=== PATIENT | male | born 1970 | race Caucasian/White ===

== ENCOUNTER 2016-05-12 15:11 | Inpatient (IN) | payer OTHER ==
[~2016-05-12] VITALS: Ht 165.1 cm; Wt 52.6 kg
[~2016-05-12 15:11] MED LIST: MORPHINE SULFAT15 M2 PO; VALIUM5 M1 PO; ZANAFLEX4 MG PO
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
--- NOTE | 2016-05-12 15:26 | NUR ---
PT HAS NOT BEEN TAKING HIS BIPOLAR MEDS
[2016-05-12] MEDS ORDERED: SEROQUEL25 M1 PO (16:06)
[2016-05-12] MEDS ORDERED: SEROQUEL300 M1 PO (16:06)
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
--- NOTE | 2016-05-12 16:55 | NUR ---
PT MOVED INTO ROOM8, BLOOD DRAWN AND SENT TO LAB-SST,GUILHERME GOMEZ GRAY. URINE TRIO SENT TO LAB. EKG DONE. IV EST, PT MEDICATED WITH GLUCOGON AND NITRO PER EMAR. VSS.
[2016-05-12 17:05] LABS: ABSOLUTE BASOPHIL COUNT 0 /CUMM (0.0-0.2); ABSOLUTE EOSINOPHIL COUNT 0 /CUMM (0.0-0.7); ABSOLUTE GRANULOCYTE CT 12.5 /CUMM (1.4-6.5); ABSOLUTE LYMPH COUNT 1.7 /CUMM (1.2-3.4); ABSOLUTE MONOCYTE COUNT 0.2 /CUMM (0.10-0.60); BASOPHIL % 0.2 % (0.0-2.0); EOSINOPHIL % 0.2 % (0-5); GRANULOCYTE % 86.4 % (42.2-75.2); HEMATOCRIT 46.6 % (42-52); MEAN CORPUSCULAR HGB 28.9 PG (27.0-31.0); MEAN CORPUSCULAR HGB CONC 33.4 G/DL (33.0-37.0); MEAN CORPUSCULAR VOLUME 86.4 FL (80.0-94.0); MEAN PLATELET VOLUME 9.3 FL (7.4-10.4); PLATELET COUNT 261 /CUMM (130-400); RBC DISTRIBUTION WIDTH 13.4 % (11.5-14.5); RED BLOOD CELL CT 5.39 /CUMM (4.70-6.10); WHITE BLOOD CELL COUNT 14.5 /CUMM (4.8-10.8)
--- NOTE | 2016-05-12 18:03 | NUR ---
MIGUELINA COUCH TO BEDSIDE FOR PT EVAL.
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
--- NOTE | 2016-05-12 18:31 | NUR ---
CRISIS TO BEDSIDE FOR PT EVAL.
--- NOTE | 2016-05-12 19:35 | NUR ---
Crisis consult completed - patient evaluation reviewed with on-call psychiatrist Dr. Tiffanie Riggins MD. Pt. to be admitted inpatient to [facility].
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
[2016-05-12 21:35] VITALS: BP 120/59
--- NOTE | 2016-05-12 22:16 | NUR ---
REPORT GIVEN TO CPS, TRANSPORT CALLED.
[2016-05-12 23:28] VITALS: BP 138/91
--- NOTE | 2016-05-12 23:55 | NUR ---
45 YEAR OLD MALE PATIENT ADMITTED TO [facility] WITH BIPOLAR DEPRESSION, SUICIDAL IDEATION, AND HEROINE DEPENDENCE; HE HAS BEEN USING IV AND NASAL HEROINE, PER PATIENT UP TO 50 BAGS DAILY; HE VERBALIZES SUIDICAL IDEATION; HE DENIED A PLAN DURING MY ASSESSMENT, BUT REPORTED A PLAN TO PUT AIR BUBBLES IN HIS VEINS OR USE A GUN DURING CRISIS ASSESSMENT; AFFECT IS SAD, DEPRESSED, TEARFUL; PATIENT HAS ALSO BEEN USING CANNABIS AND KLONOPIN OFF OF THE STREETS; UTOX POSITIVE ONLY FOR CANNABIS AND OPIATES; PATIENT HAS A HISTORY OF PAST SUICIDE ATTEMPTS; HE DENIES INTENT TO HARM HIMSELF WHILE IN THE HOSPITAL; ADMISSION VITAL SIGNS WNL; PATIENT REPORTS LAST BOWEL MOVEMENT ONE WEEK AGO; PER DR. SANDOVAL, COLACE AND MILK OF MAGNESIA ORDERED, ALONG WITH A ONE TIME DOSE OF METHADONE TONIGHT; SKIN INTACT; DR. BROOKS NOTIFIED FOR H&P.
--- NOTE | 2016-05-13 06:31 | NUR ---
PATIENT SLEPT ALL NIGHT.
[2016-05-13 08:16] VITALS: BP 136/71
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
[2016-05-13 13:32] VITALS: BP 123/73
--- NOTE | 2016-05-13 14:36 | NUR ---
PT WAS NOT VISIBLE MUCH IN THE [facility] TODAY. PT STAYED IN HIS BEDROOM FOR MOST OF THE DAY. HE SHARED TO THIS MHW THAT HE WAS NOT FEELING WELL. HE HAD MINIMAL INTERACTIONS WITH HIS PEERS, BUT HAS BEEN COOPERATIVE WITH STAFF WHEN IT COMES TO GETTING VITALS, AND GETTING UP FOR MEALS. WHEN ASKED IF PT HAS THOUGHTS TO HARM HIMSELF, PT STATED YES, HE WOULD DO IT HERE BUT HAS NO PLANS. THIS MHW DID REPORT IT TO THE NURSE IN CHARGE.
--- NOTE | 2016-05-13 14:54 | NUR ---
CLARIFICATION OF PREVIOUS NOTE: PATIENT REPORTS SUICIDE IDEATION WITHOUT A PLAN. PATIENT REPORTS HE WILL NOTIFY STAFF IF SUICIDAL THOUGHTS INCREASE OR HE FEELS UNSAFE.
--- NOTE | 2016-05-13 15:33 | Cons- Gastroenterology ---
LEXY OROSCO 05/13/16 1509: General Information and HPI Consulting Request Date of Consult: 05/13/16 Requested By: KIKA PRINCE MD Reason for Consult: Dysphagia Source of Information: patient Exam Limitations: no limitations History of Present Illness: He is 45-year-old male with past medical history of bipolar disorder, anxiety, Polysubstance abuse and chronic smoker (smokes 2 packs per day for last 35 years ) has been admitted in inpatient psych unit for high risk of harm to self due to stated suicidal ideation with a plan. We were called for consult because patient has been complaining of swallowing difficulty since admission. According to patient he has swallowing difficulty with both solids and liquids ( less severe) for last 3-5 years. He has dysphasia each time he eats or drinks something. He reports that he had been worked up by GI in [place] in past by doing EGD and they found esophageal scarring. He also had a colonoscopy but it was normal. He relates that scarring due to working in an environment with a chemical, ferrous sulfide. He denies any esophageal dilatation procedure. He also reported that he had a shoulder x-ray 3 years ago where they incidentally found an outpouching of upper esophagus. He admits choking on both solids and liquids and tries to swallow hard to get food down. He also reports getting food particles on his pillow when he wakes up in morning, foul-smelling breath, nausea and vomiting. He has chronic constipation and intermittent mild generalized abdominal pain. He admits having intermittent black tarry stools and history of hemorrhoids with BRBPR in past. Also reports unintentional weight loss about 9 pounds for last 6 months. He denies any family history of GI abnormalities or cancers. He also denies any chemical ingestion for suicide attempt in past. He does not complain of any chest pain. Allergies/Medications Allergies: Coded Allergies: haloperidol (From HALDOL) (STROKE LIKE SYMPTOMS, DROOLED 05/12/16) Home Med List: Quetiapine Fumarate (Seroquel) 300 MG TABLET 1 TAB PO QPM MENTAL HEALTH ( Reported) Quetiapine Fumarate (Seroquel) 25 MG TABLET 75 MG PO TID MENTAL HEALTH ( Reported) Current Medications: Current Medications Sig/Sofi Start time Last Medication Dose Route Stop Time Status Admin Acetaminophen 325 MG Q4P PRN 05/12 2345 AC 05/13 PO 1210 Clonidine 0.1 MG FOUR TIMES A DAY PRN 05/12 2345 AC PO Docusate Sodium 100 MG TID 05/12 2345 AC 05/13 PO 0908 Glucagon 0 .STK-MED ONE 05/12 1626 DC .ROUTE Glucagon 1 MG ONCE ONE 05/12 1615 DC 05/12 IV PUSH 05/12 1616 1654 Lorazepam 1 MG ONCE ONE 05/12 1945 DC 05/12 IV 05/12 1946 1942 Lorazepam 0 .STK-MED ONE 05/12 1938 DC .ROUTE Lorazepam 1 MG ONE ONE 05/12 1845 CAN PO 05/12 1846 Magnesium Hydroxide 30 ML AT BEDTIME NEED.. 05/12 2345 AC 05/13 PO 0003 Methadone HCl 10 MG BID 05/13 1000 AC 05/13 PO 0908 Methadone HCl 10 MG ONCE ONE 05/12 2330 DC 05/13 PO 05/12 2331 0002 Nicotine 21 MG DAILY 05/12 2345 05/13 TOP 0908 Nicotine 2 MG Q1H PRN 05/12 2345 05/13 PO 0909 Nitroglycerin 0 .STK-MED ONE 05/12 1626 DC SL Nitroglycerin 0.4 MG ONCE ONE 05/12 1615 DC 05/12 SL 05/12 1616 1654 Quetiapine Fumarate 25 MG Q2 HRS NEEDED PRN 05/12 234 AC PO Quetiapine Fumarate 100 MG AT BEDTIME NEED.. 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 Home ETOH Use: denies use Illicit Drug Use: heroin, marijuana Employment History Employment: Unemployed Profession/Employer: Worked since he was 15 Exam & Diagnostic Data Vital Signs and I&O Vital Signs Date Time Temp Pulse Resp B/P Pulse O2 O2 Flow FiO2 Ox Delivery Rate 05/13 1332 89 123/73 05/13 0816 97.2 92 136/71 01/23 2328 97.4 91 16 138/91 05/12 2134 99.0 90 18 120/59 05/12 2125 99.0 90 18 120/59 95 Room Air 05/12 1935 97.7 74 18 132/60 96 Room Air 05/12 1650 80 18 132/63 95 Room Air Intake & Output 05/13 0400 05/12 040 Intake Total 60 Output Total Balance 60 Intake, Oral 60 Patient 116 lb 120 lb Weight Physical Exam General Appearance: no apparent distress, alert, awake, anxious, thin, malnourished Head: atraumatic, normal appearance Eyes: Bilateral: normal appearance, PERRL, EOMI. Ears, Nose, Throat: dry mucous membranes Neck: normal inspection, supple Respiratory: normal breath sounds, chest non-tender, no respiratory distress, lungs clear Cardiovascular: regular rate/rhythm Gastrointestinal: normal bowel sounds, soft, non-tender, no organomegaly Extremities: normal inspection, no edema, fine tremors of hands Skin: intact, tatoos on lef hand and arm Results Pertinent Lab Results: Laboratory Tests 05/120 Chemistry Sodium (137 - 145 mmol/L) 137 Potassium (3.5 - 5.1 mmol/L) 3.9 Chloride (98 - 107 mmol/L) 100 Carbon Dioxide (22 - 30 mmol/L) 25 Anion Gap (5 - 16) 12 BUN (9 - 20 mg/dL) 20 Creatinine (0.7 - 1.2 mg/dL) 0.6 L Estimated GFR (>60 ml/min) > 60 BUN/Creatinine Ratio (7 - 25 %) 33.3 H Glucose (65 - 99 mg/dL) 149 H Calcium (8.4 - 10.2 mg/dL) 9.5 Total Bilirubin (0.2 - 1.3 mg/dL) 0.6 AST (17 - 59 U/L) 16 L ALT (21 - 72 U/L) 24 Alkaline Phosphatase (< 127 U/L) 95 Total Protein (6.3 - 8.2 g/dL) 7.0 Albumin (3.5 - 5.0 g/dL) 3.9 Globulin (1.9 - 4.2 gm/dL) 3.1 Albumin/Globulin Ratio (1.1 - 2.2 %) 1.3 TSH (0.270 - 4.200 uIU/mL) Cancelled 0.511 Free T4 (0.64 - 1.79 ng/dL) Cancelled 1.35 Thyroxine (T4) (4.5 - 10.9 ug/dL) Cancelled 6.4 Hematology CBC w Diff NO MAN DIFF REQ WBC (4.8 - 10.8 /CUMM) 14.5 H RBC (4.70 - 6.10 /CUMM) 5.39 Hgb (14.0 - 18.0 G/DL) 15.6 Hct (42 - 52 %) 46.6 MCV (80.0 - 94.0 FL) 86.4 MCH (27.0 - 31.0 PG) 28.9 RDW (11.5 - 14.5 %) 13.4 Plt Count (130 - 400 /CUMM) 261 MPV (7.4 - 10.4 FL) 9.3 Gran % (42.2 - 75.2 %) 86.4 H Lymphocytes % (20.5 - 51.1 %) 11.6 L Monocytes % (1.7 - 9.3 %) 1.6 L Eosinophils % (0 - 5 %) 0.2 Basophils % (0.0 - 2.0 %) 0.2 Absolute Granulocytes (1.4 - 6.5 /CUMM) 12.5 H Absolute Lymphocytes (1.2 - 3.4 /CUMM) 1.7 Absolute Monocytes (0.10 - 0.60 /CUMM) 0.2 Absolute Eosinophils (0.0 - 0.7 /CUMM) 0 Absolute Basophils (0.0 - 0.2 /CUMM) 0 PUBS MCHC (33.0 - 37.0 G/DL) 33.4 Toxicology Serum Alcohol (<10 MG/DL) < 10.0 05/12 1635 Toxicology Urine Opiates Screen (>2000 NG/ML) > 4000.00 H Methadone Screen (>300 NG/ML) < 40 Barbiturate Screen (>200 NG/ML) < 60 Ur Phencyclidine Scrn (>25 NG/ML) < 6.00 Amphetamines Screen (>1000 NG/ML) 179 U Benzodiazepines Scrn (>200 NG/ML) < 85 Urine Cocaine Screen (>300 NG/ML) < 50 Urine Cannabis Screen (>50 NG/ML) > 80.00 H Assessment/Plan Assessment/Recommendations: He is 45-year-old man with past medical history of bipolar disorder, anxiety, polysubstance abuse and chronic smoker has been admitted to [facility] inpatient psych unit for mental health issues and complaining of chronic dysphagia to both solids and less severe with liquids. For this patient differentials for dysphagia could be Zenker's diverticulum vs esophageal stricture/peptic stricture vs esophageal cancer given his extensive smoking history vs achalasia vs motility disorders vs less likely esophageal spasm. He is hemodynamically stable with normal physical exam. Electrolytes are normal. We can do modified barium swallow to rule out any obstructive or motility disorders. CT chest/neck could be another option. Depending on the test results we will proceed further. Patient might need upper GI endoscopy if test results are positive for any stricture or mass. Problem List: 1. Dysphagia Consult Acknowledgment - Thank you for your consult request. LUANNE MCGEE MD 05/13/161939: Attending MD Review Statement Attending Statement Attending MD Statement: examined this patient, discuss w/resident/PA/RETARDER OPERATOR, agreed w/resident/PA/RETARDER OPERATOR, reviewed EMR data (avail), amended to note Attending Assessment/Plan: The patient was interviewed and examined. The available data was reviewed. Agree with resident's history, physical examination, and assessment. Progressive oropharyngeal dysphagia, solids more than liquid, with weight loss. Rule out cricopharyngeal achalasia with possible Zenker's diverticulum. There may also be a component of esophageal dysphagia, with the patient's history of "scarring." Recommendations * Would obtain modified barium swallow, and also esophagram with liquid and solid (barium soaked bread, barium tablet) phases. * We will defer on endoscopy for now. Pending the above, it may become necessary. * Would supplement meals with Ensure or other polymeric supplements, 3 cans per day. Assessment/Plan Consult Acknowledgment - Thank you for your consult request.
[2016-05-13 16:21] VITALS: BP 123/86
--- NOTE | 2016-05-13 18:08 | History & Physical ---
General Information and HPI MD Statement: I have seen and personally examined PRATIK BAH and documented this H&P. The patient is a 45 year old M who presented with a patient stated chief complaint of "SI and IV drug use". Source of Information: patient Exam Limitations: no limitations History of Present Illness: 45 year old white male history of fractured back in the spring of 2015 after started to use IV heroin secondary to the pain also increased depression thoughts of wanting to hurts self.Using 50 bags of heroin a day also complaining of dysphagia. 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 Home ETOH Use: denies use Illicit Drug Use: heroin, marijuana Employment History Employment Unemployed Profession/Employer Worked since he was 15 Review of Systems Review of Systems Constitutional: Reports: see HPI. Exam & Diagnostic Data Last 24 Hrs of Vital Signs/I&O Vital Signs Date Time Temp Pulse Resp B/P Pulse O2 O2 Flow FiO2 Ox Delivery Rate 05/13 1729 97.2 90 123/86 05/13 1621 90 123/86 05/13 1332 89 123/73 05/13 0816 97.2 92 136/71 05/12 2328 97.4 91 16 138/91 05/12 2135 99.0 90 18 120/59 05/12 2126 99.0 90 18 120/59 95 Room Air 05/12 1935 97.7 74 18 132/60 96 Room Air Intake & Output 05/13 1600 05/13 0800 05/13 0000 Intake Total 60 Output Total Balance 60 Intake, Oral 60 Patient 116 lb Weight Physical Exam General Appearance Alert, Oriented X3, Cooperative Skin pale and dry HEENT PERRLA, EOMI Neck Supple, No JVD, No thryomegaly, +2 Carotid Pulse wo Bruit, No LAD Lymphatic Axillary nl, Cervical nl Cardiovascular Regular Rate Lungs decreased breath sounds. Abdomen Normal Bowel Sounds, Soft, No Tenderness Neurological Exam Findings: Cranial Nerves 3-12 NL Cranial Nerves II through XII: intact Extremities No Cyanosis, No Edema Vascular Normal Pulses Last 24 Hrs of Labs/David: Laboratory Tests 05/12/162122: TSH Cancelled, Free T4 Cancelled, Thyroxine (T4) Cancelled 05/12/16 1650: Anion Gap 12, Estimated GFR > 60, BUN/Creatinine Ratio 33.3 H, Glucose 149 H, Calcium 9.5, Total Bilirubin 0.6, AST 16 L, ALT 24, Alkaline Phosphatase 95, Total Protein 7.0, Albumin 3.9, Globulin 3.1, Albumin/Globulin Ratio 1.3, TSH 0.511, Free T4 1.35, Thyroxine (T4) 6.4, CBC w Diff NO MAN DIFF REQ, RBC 5.39, MCV 86.4, MCH 28.9, RDW 13.4, MPV 9.3, Gran % 86.4 H, Lymphocytes % 11.6 L, Monocytes % 1.6 L, Eosinophils % 0.2, Basophils % 0.2, Absolute Granulocytes 12.5 H, Absolute Lymphocytes 1.7, Absolute Monocytes 0.2, Absolute Eosinophils 0, Absolute Basophils 0, PUBS MCHC 33.4, Serum Alcohol < 10.0 05/12/16 1635: Urine Opiates Screen > 4000.00 H, Methadone Screen < 40, Barbiturate Screen < 60, Ur Phencyclidine Scrn < 6.00, Amphetamines Screen 179, U Benzodiazepines Scrn < 85, Urine Cocaine Screen < 50, Urine Cannabis Screen > 80.00 H Laboratory Tests 05/12/162122: TSH Cancelled, Free T4 Cancelled, Thyroxine (T4) Cancelled Diagnostic Data ITS Data Unobtainable at this time Assessment/Plan As Ranked By This Provider Problem List: 1. Dysphagia 2. Polysubstance abuse 3. Depression 4. Suicidal ideation Miscellaneous Miscellaneous Documentation Attending Case Discussed With: KIKA SANTIAGO MD Primary Care Physician: PATIENT HAS NO PRIMARY CARE DR Patient sees these Specialists psych and GI Level of Patient Care: [place] Consults Needed: Consulting Specialty: Psychiatry Consulting Physician: Dr. Santiago Reason for Consult: SI and IV drug use.
[2016-05-13 20:10] VITALS: BP 125/71
--- NOTE | 2016-05-14 04:47 | NUR ---
QUIET SITTING IN LOUNGE FOR SHORT TIME MED. WITH SEROQUEL.
[2016-05-14 08:10] VITALS: BP 119/73
[2016-05-14 11:58] VITALS: BP 116/68
[2016-05-14 12:21] VITALS: BP 116/68
--- NOTE | 2016-05-14 13:19 | SOCIAL WORKER TX PLAN PSYCH ---
Treatment Plan - Please Document: - Evidence that there is ongoing collaboration between - the patient and the interdisciplinary team, - including the patient's active participation and - responsibility for engaging in the treatment regimen, - and that the treatment plan is individualized and - relevant to the patient's conditions. - Treatment plan should reflect documentation indicating - that all active therapeutic efforts are included. 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 Patient Identified Trmt Goals: "I need to get my life together." Discharge Plan: [facility] Problem/Goals #1 Problem #1: suicidal ideation Goal (Short Term): Today I will attend 2 groups Today I will identify 2 stressors Today I will identify 2 positive supports Today I will work on recognizing 3 emotions I am feeling Goal (Drop Forge Operator): Be free of suicidal thoughts/attempts Develop 3 coping skills to deal with depression Identify 3 positive support systems to call in crisis Develop a crisis plan with 3 lucia people Identify 2 positive traits per week about myself Identify 2 things I have to look forward to Identify 2 positive people in my life and 1 thing I appreciate about them Interventions: Learn ways to manage depressive symptoms accordingly and identify positive supports to manage life stressors and mood fluctuations. Modalities: Encourage groups, education on depression, provide CBT treatment, family meeting. Problem/Goals #2 Problem #2: opiate dependence/abuse Goal (Short Term): 1) Refrain from opiate use 2) Identify 3 triggers for use 3) Identify 3 sober supports 4) Identify 3 coping skills Goal (Drop Forge Operator): I will have family meeting on unit during my hospitalization I will attend all AA groups on unit I will arrange aftercare with [facility] I will Identify 3 coping skills for cravings to use I will attend all AA meetings on the unit I will set up aftercare for dual diagnosis program to address both mental health and substance abuse concerns Interventions: Learn ways to manage cravings to use substances accordingly and identify coping skills to prevent relapse from occurring due to anxious/depressed feelings. Modalities: Encourage groups, education on addiction, provide CBT treatment, family meeting. DSM5/PS Stressors/Medical Prob Diagnosis' (DSM 5, Stressors, Medical): F31.81 Bipolar disorder I, depressed F11.20 Opioid use disorder, Severe F41.9 Unspecified Anxiety Disorder Rule out for F40.02 Agoraphobia Current GAF: 20 Treatment Team - Responsibilities of members of the treatment team include: - Medication Management- MD or BALLOON SELLER - Medication Administration and Monitoring- Nurse - Group Therapy- Occupational Therapist - 1:1 Therapy,Disch Planning,family involvement-Vp Software
--- NOTE | 2016-05-14 13:25 | NUR ---
PT IS COMPLIANT AND COOPERATIVE. PT IS OUT IN COMMUNITY INTERACTING AT TIMES WITH STAFF AND PEERS. PT IS ACTIVE IN GROUPS. PT MOOD IS STABLE WTIH A COSNTRICTED AFFECT. PT DENIES SI THOUGHTS. PT IS NOT SCORING ON CIWA OR COWS ASSESSMENT
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
--- NOTE | 2016-05-14 15:47 | CP SOUTH PROGRESS NOTE PSYCH ---
Psych (Inpt) Progress Note Progress Note Progress Note: I discussed this patient's progress to date, current mental status, treatment process in the context of the treatment plan, and discharge planning with staff/ team in the daily morning inpatient team meeting. I also met with the patient myself in individual session. A total of 25 minutes was spent with the patient with more than 50% spent in counseling and/or coordination of care. SUBJECTIVE: "I get severely impulsive. Its cost me quite a bit. Sometimes I stay up for days doing impulsive things, I clean the house, I arranged stuff. Then sometimes I will leave the house." OBJECTIVE: Current Medications Sig/Sofi Start time Last Medication Dose Route Stop Time Status Admin Acetaminophen 325 MG Q4P PRN 05/12 2345 DC 05/13 PO 1210 Baclofen 10 MG Q6-PRN PRN 05/13 1700 AC 05/14 PO 0751 Clonidine 0.1 MG Q8P PRN 05/13 1700 AC 05/14 PO 1121 Clonidine 0.1 MG 0800,1300,0 05/13 1645 AC 05/14 PO 1357 Clonidine 0.1 MG FOUR TIMES A DAY PRN 05/12 2345 DC PO Dicyclomine HCl 20 MG Q6-PRN PRN 05/13 1700 AC 05/14 PO 0751 Docusate Sodium 100 MG TID 05/12 2345 AC 05/14 PO 0749 Hydroxyzine HCl 50 MG Q6PRN PRN 05/13 1700 AC 05/14 PO 1122 Ibuprofen 600 MG Q6PRN PRN 05/13 1700 05/14 PO 0752 [place] Carbonate 600 MG 2000 05/14 2000 AC PO [place] Carbonate 300 MG 05/14 0830 AC 05/14 PO 0916 Magnesium Hydroxide 30 ML AT BEDTIME NEED.. 05/12 2345 05/13 PO 0003 Methadone HCl 5 MG 0800,1300,1700,0 05/15 0800 AC PO 05/16 0801 Methadone HCl 5 MG ONCE ONE 05/14 1245 DC 05/14 PO 05/14 1246 1357 Methadone HCl 10 MG ONCE ONE 05/13 1545 DC 05/13 PO 05/13 1546 1543 Methadone HCl 10 MG BID 05/13 1000 AC 05/14 PO 05/14 2300 0750 Multivitamins 1 TAB 0805/14 0800 AC 05/14 PO 0749 Nicotine 21 MG DAILY 05/12 2344 05/14 TOP 0749 Nicotine 2 MG Q1H PRN 05/12 2344 05/14 PO 1357 Quetiapine Fumarate 25 MG Q2 HRS NEEDED PRN 05/12 2344 05/14 PO 0432 Quetiapine Fumarate 100 MG AT BEDTIME NEED.. 05/12 2344 AC PO Laboratory Tests 05/14 05/14 0441 0441 Chemistry Hemoglobin A1c Pending Triglycerides (<150 mg/dL) 82 Cholesterol (< 200 MG/DL) 189 LDL Cholesterol, Calc (65 - 129 mg/dL) 133 H HDL Cholesterol (40 - 60 mg/dL) 40 Cholesterol/HDL Ratio (0.00 - 4.88 %) 5 H Vital Signs Date Time Temp Pulse Resp B/P Pulse O2 O2 Flow FiO2 Ox Delivery Rate 05/14 1357 78 123/57 05/14 1221 79 116/68 05/14 1158 79 116/68 05/14 1121 79 11668 05/14 0810 96.9 75 119/73 05/14 0749 89 125/71 05/13 2128 97.7 89 16 125/71 05/13 2009 97.7 89 12571 05/13 1729 97.2 90 123/86 05/13 1621 90 123/ ASSESSMENT: Today patient described a lifetime history of severe mood lability, often staying up for days at a time, keeping busy with various tasks. States that his mother took lithium. Patient endorses having bipolar disorder, extreme mood lability. We discussed the risks, benefits, and side effects of lithium including possible renal failure, thyroid problems, and lithium toxicity. Patient verbalized understanding, and stated that he felt it was important for him to be medicated for his severe mood swings. He's been tolerating opiate withdrawal protocol including methadone taper well. I met with him in individual session this morning, and then encountered him this afternoon. This afternoon he appeared alert and awake, participating in the community, ambulating with steady gait. Reports that his depression has been improving since his arrival here; Anxiety: 9/ (with 10 the worst.) Denies suicidal ideation, homicidal ideation, auditory hallucinations, visual hallucinations, paranoid ideation. Patient states and also believes that he will not kill himself. Speech is well articulated, goal-directed, average in rate, volume and tone. Alert and oriented 3. Cooperative. The patient understands the risks/benefits/side effects of the medication and is agreeable to continue taking them. PLAN: Arlee 300 mg in the morning and 600 mg at night. Arlee level on Thursday. Family meeting with his daughter scheduled for today. Continue with current management as patient is improving. Continue to provide support and encouragement.
[2016-05-14 15:48] VITALS: BP 107/67
[2016-05-14 20:24] VITALS: BP 128/61
--- NOTE | 2016-05-14 21:50 | NUR ---
PT IS VISIBLE ON UNIT, SOCIALIZING WITH PEERS AND STAFF. DAUGHTER VISITED BRIEFLY THROUGHOUT THE EVENING. NO COMPLAINTS OR SI REPORTED. ATTENDED WRAP UP MEETING. NO COMPLAINTS OR SI REPORTED TO THIS MHW. PT HAS A STABLE MOOD AND FULL RANGE AFFECT.
[2016-05-15 07:41] VITALS: BP 127/68
[2016-05-15 12:34] VITALS: BP 131/51
--- NOTE | 2016-05-15 13:49 | SOCIAL WORKER PROG NOTE PSYCH ---
Social Work Progress Note Progress Note Pt continues to be concerned about how to manage his pain without medications, although he was wondering if he could look into menthadone, pt is not convinced either way he states "I know myself, I can only manage this pain for so long then I relapse, I never used heroin in my life until I got hurt". Pt also contmeplating not going back to live with gf, "its a co-dependent relationship", he mentions I want to have a plan, its gotta be solid, "I dont know what to do".
--- NOTE | 2016-05-15 14:31 | NUR ---
PT HAS BEEN ATTENDING GROUPS ALL DAY AND PARTICIPATING WELL. HE IDENTIFIES HIS STRESSORS AND IS MOTIVATED TO BE CLEAN AND SOBER. HE DENIED ANY SUICIDAL THOUGHTS TODAY AND IS COMPLIANT WITH HIS MED REGIME
[2016-05-15 15:55] VITALS: BP 102/57
--- NOTE | 2016-05-15 16:56 | CP SOUTH PROGRESS NOTE PSYCH ---
Psych (Inpt) Progress Note Progress Note Progress Note: I discussed this patient's progress to date, current mental status, treatment process in the context of the treatment plan, and discharge planning with staff/ team in the daily morning inpatient team meeting. I also met with the patient myself in individual session. SUBJECTIVE: "I'm always anxious, my whole life. I can't calm down." OBJECTIVE: Current Medications Sig/Sofi Start time Last Medication Dose Route Stop Time Status Admin Acetaminophen 650 MG Q6P PRN 05/15 1115 AC 05/15 PO 1225 Baclofen 10 MG Q6-PRN PRN 05/13 1700 AC 05/14 PO 0751 Clonidine 0.1 MG Q8P PRN 05/13 1700 DC 05/14 PO 1121 Clonidine 0.1 MG 0800,1300,05/13 1645 05/15 PO 1418 Dicyclomine HCl 20 MG Q6-PRN PRN 05/13 1700 AC 05/14 PO 0751 Docusate Sodium 100 MG TID 05/12 2345 05/15 PO 1636 Hydroxyzine HCl 50 MG Q6PRN PRN 05/13 1700 AC 05/14 PO 1122 Ibuprofen 600 MG Q6PRN PRN 05/13 1700 DC 05/14 PO 0752 [place] Carbonate 600 MG 2000 05/14 2000 AC 05/14 PO 2028 [place] Carbonate 300 MG 05/14 0830 05/15 PO 0815 Magnesium Hydroxide 30 ML AT BEDTIME NEED.. 05/12 2345 AC 05/13 PO 0003 Methadone HCl 5 MG 0800,1300,1700,05/15 0800 05/15 PO 05/16 0801 1636 Methadone HCl 10 MG BID 05/13 1000 DC 05/14 PO 05/14 2300 2225 Multivitamins 1 TAB 0805/14 0800 05/15 PO 0815 Nicotine 21 MG DAILY 05/12 TOP 0815 Nicotine 2 MG Q1H PRN 05/12 234 05/15 PO 1419 Quetiapine Fumarate 200 MG AT BEDTIME 05/15 2200 UNVr PO Quetiapine Fumarate 100 MG .STK-MED ONE 05/14 2223 DC PO 05/14 2224 Quetiapine Fumarate 25 MG Q2 HRS NEEDED PRN 05/12 2345 AC 05/14 PO 1559 Quetiapine Fumarate 100 MG AT BEDTIME NEED.. 05/12 2345 DC 05/14 PO 2228 ital Signs Date Time Temp Pulse Resp B/P Pulse O2 O2 Flow FiO2 Ox Delivery Rate 05/15 1555 82 102/57 05/15 1418 72 131/51 05/15 1234 72 131/51 05/15 0815 68 127/68 05/15 0741 96.9 68 127/68 05/14 2225 61 128/61 05/14 2023 97.8 84 128/61 ASSESSMENT: Patient reports doing well, tolerating opiate withdrawal well. States medications are helpful. Denies any acute withdrawal symptoms at the time of this interview. States he had a difficult time sleeping last night. Complains of chronic back pain, somewhat relieved by a heating pad. Depression:0/10; Anxiety: "Constant" (with 10 the worst.) Denies suicidal ideation, homicidal ideation, auditory hallucinations, visual hallucinations, paranoid ideation. Patient states that today he is not having suicidal thoughts. Speech is well articulated, goal-directed, average in rate, volume and tone. Calm and cooperative. Logical. Alert and oriented 3. The patient understands the risks/benefits/side effects of the medication and is agreeable to continue taking them. PLAN: Increase bedtime Seroquel to 200 mg for continuing difficulty sleeping, and regulation of racing thoughts. Continue methadone and clonidine tapers. Heating pad as needed for back pain. Continue with other current management as patient is improving. Continue to provide support and encouragement.
[2016-05-15 19:53] VITALS: BP 115/68
--- NOTE | 2016-05-15 23:24 | NUR ---
EVENING NOTE- IRRITABLE AND OFTEN REQUIRES REDIRECTION. BECAME UPSET WHEN ASKED TO STEP AWAY FROM THE DOOR HIS DAUGHTER WAS BEING LET OUT. REPORTED THAT THIS FELT "PERSONAL" EVEN AFTER ASSURED IT WAS PROTOCOL. ATTENDED GROUP. INRERACTING [facility] PEERS/STAFF
--- NOTE | 2016-05-16 04:32 | NUR ---
SLEPT WELL WITH NO COMPLAINTS OFFERED.
[2016-05-16 07:28] VITALS: BP 117/63
--- NOTE | 2016-05-16 10:43 | SOCIAL WORKER PROG NOTE PSYCH ---
Social Work Progress Note Progress Note Pt reports he can call his back and can be referred to pain management, he also would like a referral to a methadone clinic closer to [place], as he doesnt think he can stay with his daughter because her apartment is so small. Pt is not completely sure what he should do. He doesnt think he should stay in [place] either, but feels like he will be a burden to his daughter. I made an IOP intake here at [facility] for 05/20 at 12:45p and I also got the information for a methadone clinic (per pts request) closer to [place] at the [facility] they accept patient Thu- 10-2p contact info is [phone]. They are located at [address] in [place]. He will need a few documents when he applies there including a piece of mail, an id and a social security card. Pt states he would like the day to think about it, as he prepares for discharge after the weekend.
[2016-05-16 12:31] VITALS: BP 122/78
--- NOTE | 2016-05-16 13:18 | SOCIAL WORKER PROG NOTE PSYCH ---
Social Work Progress Note Progress Note Patient may be returning home to [facility] instead of residing in local area. Patient is scheduled for orientation for IOP at [facility] ([facility] location in [place]) on 05/20/16 at 10:15am.
--- NOTE | 2016-05-16 14:17 | NUR ---
PT IS OUT IN COMMUNITY INTERACTING WITH STAFF AND PEERS. PT IS COMPLIANT AND COOPERATIVE. PT IS ATTENDING ALL GROUPS. PT IS EXPECTING A VISIT FROM GIRLFRIEND TODAY WHICH HE DOESN'T KNOW IF HE IS READY. PT MOOD IS STABLE WITH A FULL RANGE AFFECT. PT DENIES SI THOUGHTS
[2016-05-16 15:38] VITALS: BP 120/67
--- NOTE | 2016-05-16 16:11 | CP SOUTH PROGRESS NOTE PSYCH ---
Psych (Inpt) Progress Note Progress Note Progress Note: I discussed this patient's progress to date, current mental status, treatment process in the context of the treatment plan, and discharge planning with staff/ team in the daily morning inpatient team meeting. I also met with the patient myself in individual session. OBJECTIVE: Current Medications Sig/Sofi Start time Last Medication Dose Route Stop Time Status Admin Acetaminophen 650 MG Q6P PRN 05/15 1115 AC 05/15 PO 1225 Baclofen 10 MG Q6-PRN PRN 05/13 1700 AC 05/14 PO 0751 Clonidine 0.1 MG 0800,05/16 220 AC PO Clonidine 0.1 MG 0800,1300,05/13 1645 DC 05/16 PO 1206 Dicyclomine HCl 20 MG Q6-PRN PRN 05/13 170 05/14 PO 0751 Docusate Sodium 100 MG TID 05/12 2345 AC 05/15 PO 1636 Hydroxyzine HCl 50 MG .STK-MED ONE 05/15 2128 DC PO 05/15 2130 Hydroxyzine HCl 50 MG Q6PRN PRN 05/13 1700 AC 05/15 PO 2134 [place] Carbonate 600 MG 05/14 PO 1954 [place] Carbonate 300 MG 05/14 0830 05/16 PO 0724 Magnesium Hydroxide 30 ML AT BEDTIME NEED.. 05/12 234 AC 05/13 PO 0003 Methadone HCl 5 MG 05/18 0800 AC PO 05/18 0801 Methadone HCl 5 MG 0800,05/17 0800 AC PO 05/17 2201 Methadone HCl 5 MG 1300,05/16 1300 AC 05/16 PO 05/16 2201 1343 Methadone HCl 5 MG 0800,1300,1700,05/15 0800 DC 05/16 PO 05/16 0801 0724 Multivitamins 1 TAB 05/14 0800 AC 05/16 PO 0724 Nicotine 21 MG DAILY 05/12 TOP 0723 Nicotine 2 MG Q1H PRN 05/12 2344 05/16 PO 1206 Quetiapine Fumarate 300 MG AT BEDTIME 05/16 2200 AC PO Quetiapine Fumarate 200 MG AT BEDTIME 05/15 220 DC 05/15 PO 2132 Quetiapine Fumarate 25 MG Q2 HRS NEEDED PRN 05/12 2345 AC 05/14 PO 1559 Quetiapine Fumarate 100 MG AT BEDTIME NEED.. 05/12 2345 DC 05/14 PO 2228 Vital Signs Date Time Temp Pulse Resp B/P Pulse O2 O2 Flow FiO2 Ox Delivery Rate 05/16 1538 81 120/67 05/16 1231 85 122/78 05/16 1206 73 117/63 05/16 0728 96.5 73 117/63 05/16 0724 83 115/68 05/15 2131 83 115/68 05/15 1953 97.3 83 ASSESSMENT: Patient reports he is doing well, tolerating methadone and clonidine taper for opiate withdrawal well. Tolerating lithium for mood stability and Seroquel for clear thoughts and insomnia well. Depression:10/27; Anxiety:01/27 (with 10 the worst.) Patient states "my whole life, I'm always at 10." Denies suicidal ideation, homicidal ideation, auditory hallucinations, visual hallucinations, paranoid ideation. Patient states and also believes that he will not kill himself. States he did not sleep well last night, requesting increase in dose of Seroquel at bedtime. States his appetite is good. Speech is well articulated, goal-directed, average in rate, volume and tone. Calm and cooperative. The patient understands the risks/benefits/side effects of the medication and is agreeable to continue taking them. PLAN: [place] level on Thursday morning. Please titrate to therapeutic value. Continue methadone and clonidine taper to discontinuation. Anticipate discharge early next week. Continue with current management as patient is improving. Continue to provide support and encouragement.
[2016-05-16 19:57] VITALS: BP 134/72
--- NOTE | 2016-05-16 21:29 | NUR ---
PT IS STABLE WITH CONSTRICTED AFFECT. PT REPORTS SOME MILD ANXIETY AND CHRONIC PAIN. PT IS CURRENTLY IN THE LOUNGE INTERACTING WITH PEERS/STAFF. PT HAS BEEN VISIBLE WITHIN THE MILIEU ALL NIGHT. VS ARE STABLE AND DENIES ANY SI/HI TO THIS MHW.
[2016-05-17 06:55] LABS: LITHIUM 0.5 mmol/L (0.6-1.2)
[2016-05-17 08:19] VITALS: BP 116/74
[2016-05-17 12:26] VITALS: BP 113/65
--- NOTE | 2016-05-17 13:55 | NUR ---
PTS GOAL WAS TO "MAKE IT THRU THE DAY". HE ATTENED ONLY ONE GROUP. HE IS COMPLIANT WITH HIS MED REGIME AND HE DENIED ANY SUICIDAL THOUGHTS TODAY. HE INTERACTS WITH STAFF AND PEERS APPROPRIATELY
--- NOTE | 2016-05-17 14:42 | CP SOUTH PROGRESS NOTE PSYCH ---
Psych (Inpt) Progress Note Progress Note Include the following elements, when applicable: Involvement in the active treatment of the patient with behavioral observations of the patient and the patient's response to the treatment. Review of the ongoing treatment process in the context of the treatment plan. Indication of how multi-disciplinary staff members are carrying out the treatment plan. Plans for future interventions and recommendations for revision of the treatment plan. Liaison with other physicians/providers. Progress Note: Stated that he has continued to have pain, anxiety, cant sleep. Stated that Tylenol is like a tic tac compared to all the heroin he was using prior to admission. Not realistic plans when discharged poorly motivated to attend longer term drug tx, states that he needs to work and will probably smoke weed instead, at least it helps with the anxiety. Attempted to discuss benefits of longer term drug tx. Stated that he is always anxious, feels that his body hyper metabolizes everything. MSE: middle aged man, poor dentition, poor grooming. Mild psychomotor activation. Anxious at times. Good eye contact. Mood anxious, affect full to constricted. Jittery. Thought process coherent and goal directed. No overt thought content abnormalities evident. States that he wanted to b/c of the pain, not b/c he actually wants to , wanted relief. No AH/VH. Insight impaired, judgment adequate. Risk associated w/ significant pain, drug use hx, depressive hx. Manage w/ education, med titration, mileu therapy, groups. A: 45 y/o man w/ hx depressive sx, mood instability, drug use hx, presents anxious, jittery, c/o pain and insomnia. Plan: Li level 0.5, will increase to lithium 600mg twice daily; labs on 05/20. Will consider increasing lithium again tmr. encouraged him to take his prn of seroquel and hydroxyzine. Discussed importance of abstinence and pain management program rather than smoking MJ.
[2016-05-17 16:15] VITALS: BP 125/66
[2016-05-17 20:22] VITALS: BP 138/87
--- NOTE | 2016-05-17 22:54 | NUR ---
PT IS CALM, COOPERATIVE WITH STAFF AND PEERS, AND COMPLIANT WITH UNIT RULES. PT RFECIEVED VISIT FROM DAUGHTER DURING SHIFT. PT HAS BEEN INTERACTING WELL WITH OTHERS AND REMAINS IN MILIEU. MOOD IS STABLE, AFFECT IS FULL RANGE, COMMUNICATION IS NORMAL, AND APPETITE IS NORMAL. PT DENIES SI AT THIS TIME.
--- NOTE | 2016-05-18 05:41 | NUR ---
PATIENT SLEPT FROM 0130 AND IS CURRENTLY STILL SLEEPING.
[2016-05-18 07:56] VITALS: BP 125/73
--- NOTE | 2016-05-18 11:44 | CP SOUTH PROGRESS NOTE PSYCH ---
Psych (Inpt) Progress Note Progress Note Include the following elements, when applicable: Involvement in the active treatment of the patient with behavioral observations of the patient and the patient's response to the treatment. Review of the ongoing treatment process in the context of the treatment plan. Indication of how multi-disciplinary staff members are carrying out the treatment plan. Plans for future interventions and recommendations for revision of the treatment plan. Liaison with other physicians/providers. Progress Note: Stated that he is anxious, that he has a temper problem and is very quick to anger and has been since adolescence; discussed therapy and behavioral management for this. [place] his son, daughter, grandchildren, in the beginning of June. Feels that this will be beneficial to get him away from drug triggers, improve his pain w/ the bad weather. Stated that he hopes that the routine will manage his sx. We discussed having plan (ie call family, walk away etc) when faced w/ triggers for drug use and when having suicidal/severely depressive thoughts, rather than Ill try to avoid it as behavioral management. No change with increased lithium dose. MSE: middle aged man, poor dentition, poorly groomed. Psychomotor agitation remains, anxious. Eye contact fair. Mood euthymic to anxious, affect full overall. Thought process coherent and goal directed. No overt thought content abnormalities evident. Denies thoughts of wanting to . No AH/VH. Insight impaired, judgment adequate. Risk associated w/ significant pain, drug use hx, depressive hx. Manage w/ education, med titration, mileu therapy, groups. A: 45 y/o man w/ hx depressive sx, mood instability, drug use hx, presents anxious, jittery, c/o pain; but future oriented and looking forward to next several months. Plan: Li level 0.5, increased lithium again to 600mg in the morning and 750mg at night time. Said he urinates more frequently so continue to monitor lithium level. Encouraged him to take PRN of seroquel and hydroxyzine. Discussed abstinence and importance of outpatient follow up rather than just relying on himself for sobriety. Changed to prn colace.
[2016-05-18 12:20] VITALS: BP 124/71
--- NOTE | 2016-05-18 14:37 | NUR ---
Pt is present in the community A&O X 3, compliant with medication and group therapies/ activities. Pt report poor night sleep due largely to multiple bathroom trips siting the lithium carbonates as most probable cause. Pt's mood is stable with constricted affects c/o of chronic back. vital sign is stable and within the acceptable, denies thougth of self-harm and to someone else.
[2016-05-18 15:55] VITALS: BP 155/70
[2016-05-18 20:12] VITALS: BP 159/64
--- NOTE | 2016-05-18 21:37 | NUR ---
PT IS VISIBLE ON UNIT, SOCIAL WITH PEERS. HAD VISITORS THROUGHOUT THE EVENING. ATTENDED WRAP UP MEETING AND PARTICIPATED. COOPERATIVE AND COMPLIANT. PT HAS A STABLE MOOD AND FULL RANGE AFFECT.
--- NOTE | 2016-05-19 04:27 | NUR ---
PT. OUT AND AROUNDS THE UNIT MUCH CLEARED
--- NOTE | 2016-05-19 07:27 | PN- Gastroenterology ---
See Addendum Assessment/Plan Assessment/Recommendations: (*Patient seen & examined. Chart reviewed. GI consult of 05/13/[address] Mitchel Patterson appreciated). 45-year-old male, smoker, non-EtOH, history of polysubstance abuse (cannabis, heroin, ex-IVDA)- uncertain of HIV status, admitted to [facility] psychiatric unit 05/12/2016 with suicidal ideation. He currently denies any suicidal or homicidal ideation. The patient has chronic dysphagia over the past few years, solids greater than liquids. He claims EGD done in [place], [place], approximately 2010 (unsure as to by whom) showed "scarring in the esophagus". He did not need to have his esophagus dilated. Previous EGD reports are not available. He denies having any previous colonoscopy. The patient claims he then had imaging studies on his neck after the EGD for worker's compensation, which incidentally showed a "sac in the esophagus," which the patient cannot further elucidate. On 05/13/2016, Dr. Selvin Patterson advised barium swallow and modified barium swallow with speech pathology. For some reason, neither of these were done. The patient's nurse claims the patient was not desirous of this, but the patient denies this. The patient has rare symptoms of reflux. He denies any food impaction to the point that it had to be removed endoscopically. He tolerated solids over the past week, but claims that he occasionally spits up clear fluid. There is no nausea, vomiting, hematemesis, melena, or definite odynophagia, just an occasional sore throat. He denies any fevers, chills, jaundice, chest pain, or shortness of breath. There is no abdominal pain or early satiety. He denies any change in bowel habits or rectal bleeding. His appetite is good. He denies any neurologic symptoms, CVA, change in voice, nasal regurgitation of food or liquids, thyroid disease, head and neck malignancy, or head and neck CA. The patient is uncertain as to weight loss. There are no rashes. Differential diagnosis includes Zenker's diverticulum, esophageal stricture, malignancy, esophageal dysmotility, or EOE. *GI workup is not limited by the fact that the patient claims he is "going home today". SUGGEST: NPO for now. Barium swallow today, followed by modified barium swallow with speech pathology. Further decision on when to re-feed patient dependent on above results. Consideration for inpatient (vs. outpatient) EGD, depending on the above results. Consideration for empiric Protonix 40 mg po daily, 1/2 hour before breakfast. In view of numerous risk factors, consider checking Hep A Ab, Hep Bs Ag, Hep B core Ab, Hep Bs Ab, Hep C Ab & HIV. Further recommendations to follow, depending on clinical course. The above was discussed with the psychiatric staff and the patient. Problem List: 1. Dysphagia 2. Polysubstance abuse 3. Bipolar disorder Subjective Subjective: (*Patient seen & examined. Chart reviewed. GI consult of 05/13/[address] Mitchel Patterson appreciated). The patient is tolerating solids for the past week. BS & MBS with speech pathology advised 05/13/16 not yet done. The patient claims she still has intermittent dysphagia. There were no definite constitutional symptoms, chest pain, shortness of breath, or hematemesis. Review of Systems: Full 14 point ROS otherwise non-contributory, and as per HPI. Review of Systems Constitutional: Denies: chills, diaphoresis, fever, malaise, weakness, unexplained weight loss. EENTM: Reports: throat pain (sore throat). Denies: blurred vision, double vision, visual changes, eye pain, eye drainage, eye tearing, icterus, ear discharge, ear pain, ear redness, hearing changes, nasal congestion, epistaxis, nasal pain, throat swelling, mouth pain, tooth pain. Cardiovascular: Denies: chest pain, edema, orthopena, palpitations, peripheral edema, syncope. Respiratory: Denies: cough, hemoptysis, orthopnea, short of breath, sputum production, stridor, wheezing. Gastrointestinal: Denies: no symptoms (intermittent dysphagia), abdominal pain, bloating, constipation, diarrhea, distention, bowel incontinence, melena, nausea, bloody stool, changes in stool, vomiting, steatorrhea. Genitourinary: Denies: discharge, dysuria, frequency, hematuria, hesitation, nocturia, pain, urgency. Musculoskeletal: Denies: back pain, gout, joint pain, joint swelling, muscle pain, muscle stiffness, neck pain. Skin: Denies: cysts, change in skin color, change in hair/nails, dryness, erythema, jaundice, lesions, lymphangitis, lumps, moles, rash. Neurological/Psychological: Reports: anxiety, depressed, emotional problems (bipolar/substance abuse). Denies: ataxia, cognitive dysfunction, confusion, dementia, headache, numbness, paresthesia, pre-existing deficit, petit mal seizures, tingling, tremors, tonic- clonic seizures, unable to move lower ext, unable to move upper ext, weakness, other. Hematologic/Endocrine: Denies: bruising, bleeding, polyuria, polydipsia. Immunologic/Allergic: Denies: see HPI, splenectomy, HIV/AIDS, lymphadenopathy. All Other Systems: Reviewed and Negative Objective Vital Signs and I&Os Vital Signs Date Time Temp Pulse Resp B/P Pulse O2 O2 Flow FiO2 Ox Delivery Rate 05/18 2153 97.4 96 16 159/64 05/18 2011 97.4 96 159/64 05/18 1555 91 155/70 05/18 1220 77 124/71 Physical Exam: Well-developed, well-nourished slightly anxious thin male, in no apparent distress. Sclera anicteric. Conjunctiva pink. Oropharynx clear. No oral thrush. No aphthous ulcers. No stridor. Fair dentition. There is no adenopathy, thyromegaly, or JVD. No peripheral stigmata of inflammatory bowel disease or chronic liver disease on exam. No spiders on the anterior chest wall. No CVA tenderness. Lungs: clear to A&P, with slightly prolonged expiratory phase. No wheezing, rales, or rhonchi. Decreased decreased BS at the bases B/L. Heart exam: regular rate rhythm S1 and S2, without any murmur. Abdominal exam: normal bowel sounds, soft belly, nontender without guarding or rebound. No mass. No organomegaly. No fluid shift. No pulsatile mass. Digital rectal exam: deferred. Extremities: without C, C, or E. No palpable cords. Multiple tattoos. No palmar erythema. No Dupuytren's contractures. No rash. Distal pulses 2+ bilaterally. DTRs 2+ bilaterally. Ambidextrous. CN II -XII intact. Alert and oriented x 3. No tremor. No asterixis. No cogwheeling. No tardive dyskinesia. Current Medications: Current Medications Sig/Sofi Start time Last Medication Dose Route Stop Time Status Admin Acetaminophen 650 MG Q6P PRN 05/15 1115 AC 05/15 PO 1225 Baclofen 10 MG Q6-PRN PRN 05/13 1700 05/14 PO 0751 Clonidine 0.1 MG 0800,05/16 22005/18 PO 2154 Dicyclomine HCl 20 MG Q6-PRN PRN 05/13 1700 05/14 PO 0751 Docusate Sodium 100 MG Q8P PRN 05/18 1045 AC PO Docusate Sodium 100 MG TID 05/12 2345 VT 05/17 PO 0908 Hydroxyzine HCl 50 MG Q6PRN PRN 05/13 1700 05/18 PO 1557 Fairchild Carbonate 750 MG 05/18 05/18 PO 2008 Fairchild Carbonate 600 MG 05/18 08 05/18 PO 075 [place]child Carbonate 600 MG 05/14 DC 05/17 PO 2016 Magnesium Hydroxide 30 ML AT BEDTIME NEED.. 05/12 234 05/13 PO 0003 Multivitamins 1 TAB 05/14 0805/18 PO 0752 Nicotine 21 MG DAILY 05/12 23405/18 TOP 0752 Nicotine 2 MG Q1H PRN 05/12 234 05/18 PO 2154 Quetiapine Fumarate 300 MG AT BEDTIME 05/16 2199 05/18 PO 215 Quetiapine Fumarate 25 MG Q2 HRS NEEDED PRN 05/12 234 05/18 PO 1205 Results Pertinent Lab Results: Laboratory Tests 05/17 614 Chemistry Sodium (137 - 145 mmol/L) 141 Potassium (3.5 - 5.1 mmol/L) 4.2 Chloride (98 - 107 mmol/L) 107 Carbon Dioxide (22 - 30 mmol/L) 22 Anion Gap (5 - 16) 11 BUN (9 - 20 mg/dL) 23 H Creatinine (0.7 - 1.2 mg/dL) 0.7 Estimated GFR (>60 ml/min) > 60 BUN/Creatinine Ratio (7 - 25 %) 32.9 H Glucose (65 - 99 mg/dL) 88 Calcium (8.4 - 10.2 mg/dL) 9.5 Phosphorus (2.5 - 4.5 mg/dL) 5.0 H Albumin (3.5 - 5.0 g/dL) 3.8 Toxicology Fairchild (0.6 - 1.2 mmol/L) 0.5 L Imaging/Other Studies: None.
[2016-05-19 08:02] VITALS: BP 145/80
[2016-05-19] MEDS ORDERED: NICORELIEF2 MG PO (11:09)
[2016-05-19] MEDS ORDERED: QUETIAPINE FUM100 M1 PO (11:12)
[2016-05-19] MEDS ORDERED: HYDROXYZINE HCL50 M1 PO (11:13)
[2016-05-19] MEDS ORDERED: LITHIUM CARBON300 M4 PO (11:19)
[2016-05-19] MEDS ORDERED: ONE DAILY MULT1 EAC2 PO (11:20)
--- NOTE | 2016-05-19 11:33 | SOCIAL WORKER PROG NOTE PSYCH ---
Social Work Progress Note Progress Note Patient to discharge home today. Patient reports feeling good to leave today and plans to return to his original residence in [place], [place]. Patient has agreed to attend IOP at [facility] which is in his town ([facility]). Patient has group orientation into the program tomorrow, 05/20/16, at 10 :15am. Patient will meet with a prescriber after attending 3 group sessions. Patient denies SI/HI/AH/VH at present and is able to contract for safety today. He is also recommended to attend AA meetings in the community.
[2016-05-19 12:17] VITALS: BP 128/75
--- NOTE | 2016-05-19 12:44 | CP SOUTH PROGRESS NOTE PSYCH ---
Psych (Inpt) Progress Note Progress Note Progress Note: I discussed this patient's progress to date, current mental status, treatment process in the context of the treatment plan, and discharge planning with staff/ team in the daily morning inpatient team meeting. I also met with the patient myself in individual session. OBJECTIVE: Current Medications Sig/Sofi Start time Last Medication Dose Route Stop Time Status Admin Acetaminophen 650 MG Q6P PRN 05/15 1115 AC 05/15 PO 1225 Baclofen 10 MG Q6-PRN PRN 05/13 1700 AC 05/14 PO 0751 Clonidine 0.1 MG 08,05/16 PO 0830 Dicyclomine HCl 20 MG Q6-PRN PRN 05/13 1700 05/14 PO 0751 Docusate Sodium 100 MG Q8P PRN 05/18 1045 AC PO Hydroxyzine HCl 50 MG Q6PRN PRN 05/13 1700 05/18 PO 1557 Clute Carbonate 750 MG 05/18 PO 2008 Clute Carbonate 600 MG 05/18 08 AC 05/19 PO 0830 Magnesium Hydroxide 30 ML AT BEDTIME NEED.. 05/12 23405/13 PO 0003 Multivitamins 1 TAB 05/14 0805/18 PO 0752 Nicotine 21 MG DAILY 05/12 TOP 0830 Nicotine 2 MG Q1H PRN 05/12 PO 0832 Quetiapine Fumarate 300 MG AT BEDTIME 05/16 PO 2154 Quetiapine Fumarate 25 MG Q2 HRS NEEDED PRN 05/12 PO 1205 Vital Signs Date Time Temp Pulse Resp B/P Pulse O2 O2 Flow FiO2 Ox Delivery Rate 05/19 1217 84 128/75 05/19 08 82 145/80 05/19 08 96.4 82 145/80 05/18 2153 97.4 96 16 159/64 05/18 2011 97.4 96 159/64 05/18 1555 91 155/70 ASSESSMENT: Patient reports he is well, is safe and ready for discharge. Denies having cravings for opiates. States that he tolerated well methadone and clonidine taper to discontinuation for heroin dependence. He reports continuing anxiety, which he states is his baseline. States he's tolerating his medications well. Seroquel helps at night for sleep, hydroxyzine helps during the day for anxiety. I spoke today with GI doctor Dr. Maier, who would like the patient to follow- up for barium swallow, and modified barium swallow, which can be done on an outpatient basis. Patient states that he will follow up. We called Dr. Maier's office for an appointment, the office states that they will call the patient back with dates and times for his outpatient testing. He states that although he does not live in the area, he is here frequently visiting his family , and will not have a problem receiving care here. Clute dose increased to 600 mg in the morning and 900 mg at night. Patient states he will follow up for lithium level at [facility], where he has an intake appointment tomorrow. Depression:0/10; Anxiety: "Really bad" (with 10 the worst.) Denies suicidal ideation, homicidal ideation, auditory hallucinations, visual hallucinations, paranoid ideation. Patient states and also believes that he will not kill himself. Patient states he does not sleep well at night, waking up at least twice to urinate in the middle the night. Reports continuing night tremors, which he also states his baseline. Speech is well articulated, goal-directed, average in rate, volume and tone. Calm and cooperative. Alert and oriented 3. Logical. The patient understands the risks/benefits/side effects of the medication and is agreeable to continue taking them. PLAN: Clute 600 mg in the morning, 900 mg at night. Discharged today. Will follow-up at [facility] IOP and with Dr. Hanks for [facility]. Continue with current management as patient is improving. Continue to provide support and encouragement.
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
--- NOTE | 2016-05-19 13:48 | NUR ---
PT IS SCHEDULED FOR D/C TO [facility] TODAY. HE WILL FOLLOW UP WITH IOP AT . PT REPORTS AND DEMONSTRATES IMPROVEMENT IN MOOD AND ABILITY TO FUNCTION. HE DENIES ANY THOUGHTS FO SUICIDE OR SELF HARM. HE VERBALIZES A GOOD UNDERSTANDING OF HIS MED REGIME AND TREATMENT PLAN. PT IS GIVEN EDUCATION ON MANAGING HIS DEPRESSION AND ON SUICIDE PREVENTION
== END 2016-05-19 14:58 | DRG 753 ==
LOC: ERH 15:11 → CP SOUTH 19:54 → ERHI 19:54 → ENPENDDIS 19:54 → CP SOUTH 22:42
PROVIDERS: Nurse Practitioner Psychiatric/Mental Health; Physician Assistant Medical; ADMIT Psychiatry & Neurology Psychiatry
DX: F31.9 Bipolar disorder, unspecified (principal); F11.20 Opioid dependence, uncomplicated; H40.9 Unspecified glaucoma; F17.210 Nicotine dependence, cigarettes, uncomplicated
CPT/HCPCS: 36415; 80307; 93005; 93010; 96374; 96375; G0463; G0480; J1610; J3490